=== PATIENT | female | born 1990 | race Caucasian/White ===

== ENCOUNTER 2018-04-21 23:52 | Inpatient (IN) | payer BC ==
[2018-04-22] MEDS ORDERED: Sodium Chloride 0.9% 2.5 ML Syringe FLUSH PRN (01:35)
[2018-04-22] MEDS ORDERED: Sodium Chloride 0.9% 10 ML Syringe FLUSH PRN (01:35)
[2018-04-22] MEDS ORDERED: Oxytocin/0.9 % Sodium Chloride 30 UNIT/500 ML BAG IV SCH (01:45)
[2018-04-22] MEDS ORDERED: Citric Acid/Sodium Citrate Solution 30 ML Cup PO SCH (01:45)
[2018-04-22] MEDS: Lactated Ringers 1,000 ML IV SCH ×2 (01:45→07:26)
--- NOTE | 2018-04-22 01:55 | PCM.SN ---
- Free Text/Narrative Note: Asked to start patient IV. IV started in right hand with 20g angiocath x 1 attempt with good blood flow and flushes easily. Secured with tegaderm.
[2018-04-22] MEDS ORDERED: Propofol 200 MG/20 ML SDV ONE (07:11)
[2018-04-22] MEDS ORDERED: Midazolam 1 MG/ML 2 ML SDV ONE (07:11)
[2018-04-22] MEDS ORDERED: fentaNYL 250 MCG/5 ML SDV ONE (07:11)
[2018-04-22] MEDS ORDERED: Lidocaine 2% 5 ML SDV ONE (07:11)
[2018-04-22] MEDS ORDERED: Ondansetron 4 MG/2 ML SDV ONE (07:12)
[2018-04-22] MEDS ORDERED: fentaNYL 100 MCG/2 ML SDV ONE (07:12)
[2018-04-22] MEDS ORDERED: Oxytocin 10 Units/1 ML SDV ONE (07:12)
[2018-04-22] MEDS ORDERED: Succinylcholine 200 MG/10 ML MDV ONE (07:12)
[2018-04-22] MEDS ORDERED: Octyl 2-Cyanoacrylate 1 Tube ONE (07:19)
--- NOTE | 2018-04-22 07:23 | PCM.PREANE ---
Preanesthetic Assessment - Procedure Proposed Procedure: ; prior 2 yr ago; BTL - Anesthesia/Transfusion/Family Hx Anesthesia History: Prior Anesthesia Without Reaction Family History of Anesthesia Reaction: No Additional History: BMI 74 - Review of Systems General: Other (active labor) Pulmonary: No Symptoms Cardiovascular: No Symptoms Gastrointestinal: Other (GERD) Neurological: Difficulty Walking (due to weight) Other: Reports: None - Physical Assessment NPO Status Date: 04/21/18 NPO Status Time: 22:30 Height: 5 ft 3 in Weight: 420 lb ASA Class: 3E Mental Status: Alert & Oriented x3 Airway Class: Mallampati = 2 Dentition: Reports: Normal Dentition Thyro-Mental Finger Breadths: 3 (short ,full neck) Mouth Opening Finger Breadths: 3 ROM/Head Extension: Limited/Partial Lungs: Clear to Auscultation, Normal Respiratory Effort Cardiovascular: Regular Rate, Regular Rhythm, No Murmurs - Lab Values: Laboratory Last Values WBC 12.14 K/uL (4.0-11.0) H 04/22/18 01:50 RBC 3.42 M/uL (4.30-5.90) L 04/22/18 01:50 Hgb 9.7 g/dL (12.0-16.0) L 04/22/18 01:50 Hct 30.2 % (36.0-46.0) L 04/22/18 01:50 MCV 88.3 fL (80.0-98.0) 04/22/18 01:50 MCH 28.4 pg (27.0-32.0) 04/22/18 01:50 MCHC 32.1 g/dL (31.0-37.0) 04/22/18 01:50 RDW Std Deviation 41.3 fl (28.0-62.0) 04/22/18 01:50 RDW Coeff of Steven 14 % (11.0-15.0) 04/22/18 01:50 Plt Count 242 K/uL (150-400) 04/22/18 01:50 MPV 11.30 fL (7.40-12.00) 04/22/18 01:50 Membrane Rupture POSITIVE 04/22/18 00:13 Blood Type A POSITIVE 04/22/18 01:50 Antibody Screen NEGATIVE 04/22/18 01:50 - Allergies Allergies/Adverse Reactions: Allergies Allergy/AdvReac Type Severity Reaction Status Date / Time latex Allergy Rash Verified 04/19/18 10:36 - Blood Blood Available: No Product(s) Available: PRBC (T and S) - Anesthesia Plan Pre-Op Medication Ordered: Antacids - Acknowledgements Anesthesia Type Planned: Spinal (sitting; if unsuccessful, then general anesthetic (she understands)) Pt an Appropriate Candidate for the Planned Anesthesia: Yes Alternatives and Risks of Anesthesia Discussed w Pt/Guardian: Yes Pt/Guardian Understands and Agrees with Anesthesia Plan: Yes PreAnesthesia Questionnaire - Past Health History Medical/Surgical History: Denies Medical/Surgical History HEENT History: Reports: Other (See Below) Other HEENT History: wears glasses lazy eye 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 Has taken iron with the last 2 pregnancies. Other Dermatologic History: right lower leg has sore that has clear fluid leaking and started x1.5 weeks ago. Sores notes on left lower leg - Infectious Disease History Infectious Disease History: Reports: Chicken Pox - Past Surgical History Head Surgeries/Procedures: Reports: Other (See Below) HEENT Surgical History: Reports: None - HOME MEDS Home Medications: Home Meds PNV95/Ferrous Fumarate/FA [ Tablet] 1 tab PO DAILY 04/19/18 [History] - CURRENT (IN HOUSE) MEDS Current Meds: Current Medications Citric Acid/Sodium Citrate (Bicitra Solution) 30 ml PO .ONCE ANGELLA Oxytocin/Sodium Chloride (Oxytocin 30 Unit/500 Ml-Ns) 30 unit in 500 mls @ 250 mls/hr IV TITRATE ANGELLA Lactated Ringer's (Ringers, Lactated) 1,000 mls @ 500 mls/hr IV .BOLUS ANGELLA Last Admin: 04/22/18 01:45 Dose: 500 mls/hr Sodium Chloride (Saline Flush) 10 ml FLUSH ASDIRECTED PRN PRN Reason: Keep Vein Open Sodium Chloride (Saline Flush) 2.5 ml FLUSH ASDIRECTED PRN PRN Reason: Keep Vein Open Discontinued Medications Fentanyl (Sublimaze) Confirm Administered Dose 250 mcg .ROUTE .STK-MED ONE Stop: 04/22/18 07:12 Fentanyl (Sublimaze) Confirm Administered Dose 100 mcg .ROUTE .STK-MED ONE Stop: 04/22/18 07:13 Lidocaine HCl (Xylocaine-Mpf 1%) Confirm Administered Dose 5 mls @ as directed .ROUTE .ST-MED ONE Stop: 04/22/18 01:52 Lidocaine (Xylocaine-Mpf 2%) Confirm Administered Dose 10 ml .ROUTE .STK-MED ONE Stop: 04/22/18 07:12 Midazolam HCl (Versed 1 Mg/Ml) Confirm Administered Dose 2 mg .ROUTE .STK-MED ONE Stop: 04/22/18 07:12 Ondansetron HCl (Zofran) Confirm Administered Dose 8 mg .ROUTE .STK-MED ONE Stop: 04/22/18 07:13 Oxytocin (Pitocin) Confirm Administered Dose 20 unit .ROUTE .STK-MED ONE Stop: 04/22/18 07:13 Propofol (Diprivan 20 Ml) Confirm Administered Dose 400 mg .ROUTE .STK-MED ONE Stop: 04/22/18 07:12 Succinylcholine Chloride (Quelicin) Confirm Administered Dose 200 mg .ROUTE .STK -MED ONE Stop: 04/22/18 07:13
[2018-04-22] MEDS ORDERED: ePHEDrine 50 MG/ML SDV ONE (07:28)
[2018-04-22] MEDS ORDERED: Morphine PF 1 MG/ML Amp ONE (07:31)
[2018-04-22] MEDS ORDERED: Naloxone 0.4 MG/ML Syringe IVPUSH PRN (08:34)
[2018-04-22] MEDS ORDERED: Nalbuphine 10 MG/ML 10 ML MDV IVPUSH PRN (08:34)
[2018-04-22] MEDS ORDERED: Ondansetron 4 MG/2 ML SDV IV PRN (08:54)
[2018-04-22] MEDS ORDERED: Bisacodyl 10 MG Supp RECTAL PRN (08:54)
[2018-04-22] MEDS ORDERED: diphenhydrAMINE 50 MG/ML SDV IVPUSH PRN (08:54)
[2018-04-22] MEDS ORDERED: Acetaminophen/oxyCODONE 325-5 MG Tab PO PRN (08:54)
[2018-04-22] MEDS ORDERED: Lanolin 100% Cream 7 GM Tube TOP PRN (08:54)
--- NOTE | 2018-04-22 08:57 | PCM.LDHP ---
L&D History of Present Illness - General Date of Service: 04/22/18 Admit Problem/Dx: Patient Status Order with Admit Dx/Problem 04/22/18 01:35 Patient Status [ADT] Routine 04/22/18 08:54 Patient Status [ADT] Routine Admission Diagnosis/Problem Admission Diagnosis/Problem -related examination Source of Information: Patient History Limitations: Reports: No Limitations - History of Present Illness Improves with: Reports: None Worsens with: Reports: None Associated Symptoms: Reports: N - Related Data Allergies/Adverse Reactions: Allergies Allergy/AdvReac Type Severity Reaction Status Date / Time latex Allergy Rash Verified 04/19/18 10:36 Home Medications: Home Meds PNV95/Ferrous Fumarate/FA [ Tablet] 1 tab PO DAILY 04/19/18 [History] Past Medical History - Past Health History Medical/Surgical History: Denies Medical/Surgical History HEENT History: Reports: Other (See Below) Other HEENT History: wears glasses lazy eye 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 Has taken iron with the last 2 pregnancies. Other Dermatologic History: right lower leg has sore that has clear fluid leaking and started x1.5 weeks ago. Sores notes on left lower leg - Infectious Disease History Infectious Disease History: Reports: Chicken Pox - Past Surgical History Head Surgeries/Procedures: Reports: Other (See Below) HEENT Surgical History: Reports: None Social & Family History - Family History OBGYN: Reports: Other (See Below) Other OBGYN Family History: Mother and PGM Cancer H&P Review of Systems - Review of Systems: Review Of Systems: See Below General: Reports: No Symptoms HEENT: Reports: No Symptoms Pulmonary: Reports: No Symptoms Cardiovascular: Reports: No Symptoms Gastrointestinal: Reports: No Symptoms Genitourinary: Reports: No Symptoms Musculoskeletal: Reports: No Symptoms Skin: Reports: No Symptoms Psychiatric: Reports: No Symptoms Neurological: Reports: No Symptoms Hematologic/Lymphatic: Reports: No Symptoms Immunologic: Reports: No Symptoms L&D Exam - Exam Exam: See Below - Vital Signs Weight: 190.509 kg - Exam General: Alert, Oriented HEENT: PERRLA, Conjunctiva Clear, EACs Clear, EOMI, Hearing Intact, Mucosa Moist & Snyder, Nares Patent, Normal Nasal Septum, Posterior Pharynx Clear, TMs Clear Neck: Supple, Trachea Midline Lungs: Clear to Auscultation, Normal Respiratory Effort Cardiovascular: Regular Rate, Regular Rhythm GI/Abdominal Exam: Normal Bowel Sounds, Soft, Non-Tender, No Organomegaly, No Distention, No Abnormal Bruit, No Mass, Pelvis Stable Rectal Exam: Normal Exam, Normal Rectal Tone Genitourinary: Normal external exam, Normal bimanual exam, Normal speculum exam Back Exam: Normal Inspection, Full Range of Motion Extremities: Normal Inspection, Normal Range of Motion, Non-Tender, No Pedal Edema, Normal Capillary Refill Skin: Warm, Dry, Intact Neurological: Cranial Nerves Intact, Reflexes Equal Bilateral Psychiatric: Alert, Normal Affect, Normal Mood - Patient Data Lab Results Last 24 hrs: Laboratory Results - last 24 hr 04/22/18 04/22/18 04/22/18 Range/Units 00:13 01:50 01:50 WBC 12.14 H (4.0-11.0) K/uL RBC 3.42 L (4.30-5.90) M/uL Hgb 9.7 L (12.0-16.0) g/dL Hct 30.2 L (36.0-46.0) % MCV 88.3 (80.0-98.0) fL MCH 28.4 (27.0-32.0) pg MCHC 32.1 (31.0-37.0) g/dL RDW Std Deviation 41.3 (28.0-62.0) fl RDW Coeff of Steven 14 (11.0-15.0) % Plt Count 242 (150-400) K/uL MPV 11.30 (7.40-12.00) fL Membrane Rupture POSITIVE Blood Type A POSITIVE Antibody Screen NEGATIVE Result Diagrams: 04/22/18 01:50 Problem List Initiated/Reviewed/Updated: Yes Orders Last 24hrs: Active Orders 24 hr Category Date Time Status Patient Status [ADT] Routine ADT 04/22/18 08:54 Ordered Ambulate [RC] PER UNIT ROUTINE Care 04/22/18 08:54 Ordered Bradycardia-Neuroaxis [employer] [RC] ROUTINE Care 04/22/18 08:34 Active Communication Order [RC] PER UNIT ROUTINE Care 04/22/18 08:54 Ordered Communication Order [RC] PER UNIT ROUTINE Care 04/22/18 08:54 Ordered Communication Order [RC] Per Unit Routine Care 04/22/18 08:54 Ordered Non Stress Test [RC] PER UNIT ROUTINE Care 04/22/18 00:10 Active Non Stress Test [RC] PER UNIT ROUTINE Care 04/22/18 01:35 Active Hypertension-Neuroaxis [employer] [RC] ROUTINE Care 04/22/18 08:34 Active Hypotension-Neuroaxis [employer] [RC] ROUTINE Care 04/22/18 08:34 Active May Shower [RC] ASDIRECTED Care 04/22/18 08:54 Ordered Notify Provider Vital Signs [RC] PRN Care 04/22/18 01:37 Active Oxygen Therapy [RC] PER UNIT ROUTINE Care 04/22/18 08:34 Active Procedure Site Prep Instruct [RC] ASDIRECTED Care 04/22/18 01:35 Active RT Incentive Spirometry [RC] Q2HWA Care 04/22/18 08:54 Ordered Up ad Debbie [RC] ASDIRECTED Care 04/22/18 00:10 Active Up ad Debbie [RC] ASDIRECTED Care 04/22/18 01:35 Active Vaginal Exam [RC] Click to Edit Care 04/22/18 00:10 Active Verify Patient Consent Obtain [RC] ASDIRECTED Care 04/22/18 01:35 Active Vital Signs [RC] PER UNIT ROUTINE Care 04/22/18 00:10 Active Vital Signs [RC] PER UNIT ROUTINE Care 04/22/18 01:35 Active Vital Signs [RC] PER UNIT ROUTINE Care 04/22/18 08:54 Ordered Vital Signs [RC] Q1H Care 04/22/18 08:34 Active HEMOGLOBIN/HEMATOCRIT,HH [HEME] Timed Lab 04/23/18 05:11 Ordered Acetaminophen/oxyCODONE [Percocet 325-5 MG] Med 04/22/18 08:54 Ordered 1 tab PO Q4H PRN Acetaminophen/oxyCODONE [Percocet 325-5 MG] Med 04/22/18 08:54 Ordered 2 tab PO Q4H PRN Bisacodyl [Dulcolax] Med 04/22/18 08:54 Ordered 10 mg RECTAL .ONCE PRN Citric Acid/Sodium Citrate [Bicitra Solution] Med 04/22/18 01:45 Active 30 ml PO .ONCE Docusate Sodium [Colace] Med 04/22/18 09:00 Ordered 100 mg PO BID Ibuprofen [Motrin] Med 04/22/18 08:54 Ordered 800 mg PO Q8H PRN Ketorolac [Toradol] Med 04/22/18 09:00 Ordered 30 mg IVPUSH Q6H Lactated Ringers @ 125 MLS/HR(1000ml) Med 04/22/18 09:00 Ordered Lactated Ringers [Ringers, Lactated] 1,000 ml IV ASDIRECTED Lactated Ringers [Ringers, Lactated] 1,000 ml Med 04/22/18 01:45 Active IV .BOLUS Lanolin [Lansinoh HPA] Med 04/22/18 08:54 Ordered See Dose Instructions TOP ASDIRECTED PRN Nalbuphine [Nubain] Med 04/22/18 08:34 Active 10 mg IVPUSH Q3H PRN Naloxone [Narcan] Med 04/22/18 08:34 Active 0.1 mg IVPUSH ONETIME PRN Ondansetron [Zofran] Med 04/22/18 08:54 Ordered 4 mg IV Q4H PRN Oxytocin/0.9 % Sodium Chloride [Oxytocin 30 Unit/500 ML Med 04/22/18 01:45 Active -NS] 30 unit in 500 ml IV TITRATE Sodium Chloride 0.9% [Saline Flush] Med 04/22/18 01:35 Active 10 ml FLUSH ASDIRECTED PRN Sodium Chloride 0.9% [Saline Flush] Med 04/22/18 01:35 Active 2.5 ml FLUSH ASDIRECTED PRN diphenhydrAMINE [Benadryl] Med 04/22/18 08:54 Ordered 25 mg IVPUSH Q6H PRN AN Neuroaxis [employer] Precaution Reflex [OM.PC] PER Ot 04/22/18 08:45 Ordered UNIT ROUTINE AN Neuroaxis [employer] Precaution Reflex [OM.PC] PER Ot 04/23/18 08:45 Ordered UNIT ROUTINE Assess Lochia [WOMSER] Per Unit Routine Ot 04/22/18 08:54 Ordered Assess Uterine Involution [WOMSER] Per Unit Routine Ot 04/22/18 08:54 Ordered Breast Pump [WOMSER] Per Unit Routine Ot 04/22/18 08:54 Ordered Peripheral IV Discontinue [OM.PC] Routine Ot 04/22/18 08:54 Ordered Peripheral IV Insertion Adult [OM.PC] Routine Ot 04/22/18 01:35 Ordered Schedule Procedure [COMM] Per Unit Routine Ot 04/22/18 01:35 Ordered Sequential Compression Device [OM.PC] Per Unit Routine Ot 04/22/18 08:54 Ordered Resuscitation Status Routine Resus Stat 04/22/18 00:10 Ordered Medication Orders Citric Acid/Sodium Citrate (Bicitra Solution) 30 ml PO .ONCE ANGELLA Last Admin: 04/22/18 07:38 Dose: 30 ml Oxytocin/Sodium Chloride (Oxytocin 30 Unit/500 Ml-Ns) 30 unit in 500 mls @ 250 mls/hr IV TITRATE ANGELLA Lactated Ringer's (Ringers, Lactated) 1,000 mls @ 500 mls/hr IV .BOLUS ANGELLA Last Admin: 04/22/18 07:26 Dose: 500 mls/hr Infusion: 04/22/18 03:45 Dose: 500 mls/hr Admin: 04/22/18 01:45 Dose: 500 mls/hr Nalbuphine HCl (Nubain) 10 mg IVPUSH Q3H PRN PRN Reason: Pruritis Stop: 04/23/18 08:35 Naloxone HCl (Narcan) 0.1 mg IVPUSH ONETIME PRN PRN Reason: Respiratory Depression Stop: 04/23/18 08:34 Sodium Chloride (Saline Flush) 10 ml FLUSH ASDIRECTED PRN PRN Reason: Keep Vein Open Sodium Chloride (Saline Flush) 2.5 ml FLUSH ASDIRECTED PRN PRN Reason: Keep Vein Open Assessment/Plan Comment:: Admitted for repeat C/section and tubal ligation.
--- NOTE | 2018-04-22 08:58 | PCM.OPNOTE ---
- General Post-Op/Procedure Note Date of Surgery/Procedure: 04/22/18 Operative Procedure(s): Repeat C/section. Tubal ligation. Post-Op Diagnosis: Same Anesthesia Technique: Spinal Primary Surgeon: Seun Scales EBL in mLs: 800 Complications: None Condition: Good
[2018-04-22] MEDS ORDERED: Lactated Ringers 1,000 ML IV SCH (09:00)
--- NOTE | 2018-04-22 09:34 | PCM.POSTAN ---
POST ANESTHESIA ASSESSMENT - MENTAL STATUS Mental Status: Alert, Oriented - RESPIRATORY Respiratory Status: Respiratory Rate WNL, Airway Patent, O2 Saturation Stable - CARDIOVASCULAR CV Status: Pulse Rate WNL, Blood Pressure Stable - GASTROINTESTINAL GI Status: No Symptoms - PAIN Pain Score: 0 - POST OP HYDRATION Hydration Status: Adequate & Stable
[2018-04-22] MEDS: Ketorolac 30 MG/ML SDV IVPUSH SCH ×3 (11:18→23:10)
--- NOTE | 2018-04-22 12:08 | OR ---
SURGEON: Seun Scales MD DATE OF PROCEDURE: PREOPERATIVE DIAGNOSES: 1. Intrauterine , term. 2. Multiple previous sections, admitted for elective repeat section. 3. tubal ligation. POSTOPERATIVE DIAGNOSES: 1. Intrauterine , term. 2. Multiple previous sections, admitted for elective repeat section. 3. tubal ligation. OPERATION PERFORMED: Repeat low-transverse section with Lynnette tubal ligation achieving by doing distal salpingectomy. PSYCH ASSISTANT: OR tech. ANESTHESIA: Spinal, Ananth Vázquez and Declan Torre M.D. ESTIMATED BLOOD LOSS: 800 mL. COMPLICATIONS: None. INDICATION FOR THE SURGERY: This patient is 28, she had 3 previous sections. She has a higher risk. She has a high BMI and she is admitted for elective repeat section. She was approved by the ethic committee for tubal ligation. PROCEDURE IN DETAIL: The patient was brought to the OR, properly identified. After adequate level of spinal anesthesia, the patient was prepped and draped in sterile fashion as usual. Low-transverse Pfannenstiel skin incision was done. Kirstie's fascia and rectus fascia opened in direction of the incision. The 2 recti muscles were and peritoneal cavity was entered. The fetus was in the vertex position. Low-transverse uterine incision was done and extended manually with the hand. Fetus was delivered without any problem, cried immediately. score reported to be 8 and 9. The weight is not available. The placenta delivered spontaneous, complete, and intact. Repair of the lower uterine segment was done in 2 layers using 2-0 Vicryl interlocking suture. The peritoneal cavity evacuated completely from all blood and blood clot. Attention was paid to the tube at this time and distal partial salpingectomy on both sides was done to achieve bilateral tubal ligation. Once that was done, inspection of the operative field shows no oozing, no bleeding. The peritoneum closed with 3- 0 Vicryl continuous and the rectus fascia was closed with #1 PDS double strand. After that, the Rashad-Bush was placed in the subcutaneous fascia for drainage because of the size of the patient and then 3-0 Vicryl used to close the Kirstie's fascia and skin closed with skin clips. Instrument and sponge count was correct. The patient tolerated the procedure well, went to recovery room in stable general condition. FLOR / EDER /[id number]
[2018-04-22] MEDS: Docusate Sodium 100 MG Cap PO SCH ×2 (17:30→20:06)
[2018-04-22] MEDS: Enoxaparin 40 MG/0.4 ML Syringe SUBCUT SCH (20:06)
[2018-04-23] MEDS: Ketorolac 30 MG/ML SDV IVPUSH SCH ×2 (04:58→11:19)
--- NOTE | 2018-04-23 06:47 | PCM48HPAN ---
Post Anesthesia Note - EVALUATION WITHIN 48HRS OF ANESTHETIC Vital Signs in Normal Range: Yes Patient Participated in Evaluation: Yes Respiratory Function Stable: Yes Airway Patent: Yes Cardiovascular Function Stable: Yes Hydration Status Stable: Yes Pain Control Satisfactory: Yes Nausea and Vomiting Control Satisfactory: Yes Mental Status Recovered: Yes Resp Rate: 18 - COMMENTS/OBSERVATIONS Free Text/Narrative:: [employer] vitals from day shift are documented in the paper chart
[2018-04-23] MEDS: Docusate Sodium 100 MG Cap PO SCH ×2 (10:51→20:11)
[2018-04-23] MEDS: Acetaminophen/oxyCODONE 325-5 MG Tab PO PRN (11:18)
--- NOTE | 2018-04-23 12:59 | PCM.PNPP ---
- General Info Date of Service: 04/23/18 Functional Status: Reports: Pain Controlled, Tolerating Diet, Ambulating, Urinating - Review of Systems General: Denies: Fever, Fatigue HEENT: Denies: Headaches Pulmonary: Denies: Shortness of Breath, Pleuritic Chest Pain, Cough Cardiovascular: Denies: Chest Pain, Palpitations, Dyspnea on Exertion Gastrointestinal: Denies: Abdominal Pain Genitourinary: Denies: Dysuria, Incontinence, Flank Pain Psychiatric: Reports: Depression, Mood Lability, Anxiety - General Info Date of Service: 04/23/18 - Patient Data Vital Signs - Most Recent: Last Vital Signs Temp 36.9 C 04/23/18 11:51 Pulse 97 04/23/18 11:51 Resp 16 04/23/18 11:51 BP 143/75 H 04/23/18 11:51 Pulse Ox 96 04/23/18 11:51 Weight - Most Recent: 420 lb I&O - Last 24 Hours: Intake & Output 04/22/18 04/23/18 04/23/18 22:59 06:59 14:59 Intake Total 500 2000 Output Total 280 490 Balance 220 1510 Lab Results - Last 24 Hours: Laboratory Results - last 24 hr 04/23/18 Range/Units 05:40 Hgb 8.3 L (12.0-16.0) g/dL Hct 25.5 L (36.0-46.0) % Med Orders - Current: Current Medications Bisacodyl (Dulcolax) 10 mg RECTAL .ONCE PRN PRN Reason: Constipation Citric Acid/Sodium Citrate (Bicitra Solution) 30 ml PO .ONCE [facility] Last Admin: 04/22/18 07:38 Dose: 30 ml Diphenhydramine HCl (Benadryl) 25 mg IVPUSH Q6H PRN PRN Reason: Itching or Nausea Docusate Sodium (Colace) 100 mg PO BID [facility] Last Admin: 04/23/18 10:51 Dose: 100 mg Emollient Ointment (Lansinoh Hpa) 0 gm TOP ASDIRECTED PRN PRN Reason: Sore Nipples Enoxaparin Sodium (Lovenox) 40 mg SUBCUT Q24H [facility] Last Admin: 04/22/18 20:06 Dose: 40 mg Oxytocin/Sodium Chloride (Oxytocin 30 Unit/500 Ml-Ns) 30 unit in 500 mls @ 250 mls/hr IV TITRATE ANGELLA Lactated Ringer's (Ringers, Lactated) 1,000 mls @ 500 mls/hr IV .BOLUS [facility] Last Admin: 04/22/18 07:26 Dose: 500 mls/hr Lactated Ringer's (Ringers, Lactated) 1,000 mls @ 125 mls/hr IV ASDIRECTED ANGELLA Ibuprofen (Motrin) 800 mg PO Q8H PRN PRN Reason: mild pain or fever Ondansetron HCl (Zofran) 4 mg IV Q4H PRN PRN Reason: Nausea/Vomiting Oxycodone/Acetaminophen (Percocet 325-5 Mg) 1 tab PO Q4H PRN PRN Reason: Pain (moderate 4-6) Last Admin: 04/23/18 11:18 Dose: 1 tab Oxycodone/Acetaminophen (Percocet 325-5 Mg) 2 tab PO Q4H PRN PRN Reason: Pain (moderate 4-6) Sodium Chloride (Saline Flush) 10 ml FLUSH ASDIRECTED PRN PRN Reason: Keep Vein Open Sodium Chloride (Saline Flush) 2.5 ml FLUSH ASDIRECTED PRN PRN Reason: Keep Vein Open Discontinued Medications Ephedrine Sulfate (Ephedrine Sulfate) Confirm Administered Dose 100 mg .ROUTE .STK-MED ONE Stop: 04/22/18 07:29 Fentanyl (Sublimaze) Confirm Administered Dose 250 mcg .ROUTE .STK-MED ONE Stop: 04/22/18 07:12 Fentanyl (Sublimaze) Confirm Administered Dose 100 mcg .ROUTE .STK-MED ONE Stop: 04/22/18 07:13 Lidocaine HCl (Xylocaine-Mpf 1%) Confirm Administered Dose 5 mls @ as directed .ROUTE .STK-MED ONE Stop: 04/22/18 01:52 Ketorolac Tromethamine (Toradol) 30 mg IVPUSH Q6H [facility] Stop: 04/23/18 09:01 Last Admin: 04/23/18 11:19 Dose: Not Given Lidocaine (Xylocaine-Mpf 2%) Confirm Administered Dose 10 ml .ROUTE .STK-MED ONE Stop: 04/22/18 07:12 Midazolam HCl (Versed 1 Mg/Ml) Confirm Administered Dose 2 mg .ROUTE .STK-MED ONE Stop: 04/22/18 07:12 Morphine Sulfate (Duramorph Pf) Confirm Administered Dose 1 mg .ROUTE .STK-MED ONE Stop: 04/22/18 07:32 Nalbuphine HCl (Nubain) 10 mg IVPUSH Q3H PRN PRN Reason: Pruritis Stop: 04/23/18 08:35 Naloxone HCl (Narcan) 0.1 mg IVPUSH ONETIME PRN PRN Reason: Respiratory Depression Stop: 04/23/18 08:34 Octyl Cyanoacrylate (Dermabond Advance) Confirm Administered Dose 1 applic .ROUTE .STK-MED ONE Stop: 04/22/18 07:20 Ondansetron HCl (Zofran) Confirm Administered Dose 8 mg .ROUTE .STK-MED ONE Stop: 04/22/18 07:13 Oxytocin (Pitocin) Confirm Administered Dose 20 unit .ROUTE .STK-MED ONE Stop: 04/22/18 07:13 Propofol (Diprivan 20 Ml) Confirm Administered Dose 400 mg .ROUTE .STK-MED ONE Stop: 04/22/18 07:12 Succinylcholine Chloride (Quelicin) Confirm Administered Dose 200 mg .ROUTE .STK -MED ONE Stop: 04/22/18 07:13 - Infant Interaction Infant Disposition, : [place] in Room with Family Feeding: Breastfed ; Nursed Well, Continues to Breastfeed Support Person: - Recovery Exam Fundal Tone: Firm Fundal Level: At Umbilicus Fundal Placement: Midline Lochia Amount: Scant Lochia Color: Rubra/Red Perineum Description: Intact, Minimal Bruising/Swelling Episiotomy/Laceration: None Bladder Status: Voiding Urinary Elimination: Voided - Exam General: Alert, Oriented HEENT: Pupils Equal Lungs: Clear to Auscultation, Normal Respiratory Effort Cardiovascular: Regular Rate, Regular Rhythm GI/Abdominal Exam: Normal Bowel Sounds Extremities: Non-Tender, Pedal Edema Skin: Warm Wound/Incisions: Healing Well Psy/Mental Status: Alert, Normal Affect, Normal Mood - Problem List & Annotations (1) Delivered by delivery following previous delivery SNOMED Code(s): 447405609 Code(s): VVD1283 - Status: Acute Current Visit: Yes (2) Morbid obesity with BMI of 70 and over, adult SNOMED Code(s): 624415955 Code(s): E66.01 - MORBID (SEVERE) OBESITY DUE TO EXCESS CALORIES; Z68.45 - BODY MASS INDEX (BMI) 70 OR GREATER, ADULT Status: Acute Current Visit: Yes - Problem List Review Problem List Initiated/Reviewed/Updated: Yes - My Orders Last 24 Hours: My Active Orders 04/22/18 20:00 Enoxaparin [Lovenox] 40 mg SUBCUT Q24H - Assessment Assessment:: POD#1 s/p RLTCS with bilateral tubal ligation, Stable and afebrile Anemia- asymptomatic - Plan Plan:: MITCH drained removed( less than 50mls within the last 24 hours) Continue prophylactic lovenox Continue to ambulate ad sherry Start Iron supplements Aim for discharge tomorrow
[2018-04-23] MEDS: Ibuprofen 800 MG Tab PO PRN (17:12)
[2018-04-23] MEDS: Enoxaparin 40 MG/0.4 ML Syringe SUBCUT SCH (19:36)
[2018-04-24] MEDS: Ibuprofen 800 MG Tab PO PRN (04:00)
[2018-04-24] MEDS: Docusate Sodium 100 MG Cap PO SCH (08:49)
[2018-04-24] MEDS: Acetaminophen/oxyCODONE 325-5 MG Tab PO PRN (08:51)
--- NOTE | 2018-04-24 12:12 | PCM.PNPP ---
- General Info Date of Service: 04/24/18 Functional Status: Reports: Pain Controlled, Tolerating Diet, Ambulating, Urinating - Review of Systems General: Denies: Fever, Weakness, Chills HEENT: Denies: Headaches Pulmonary: Denies: Shortness of Breath, Pleuritic Chest Pain Cardiovascular: Denies: Chest Pain, Palpitations Gastrointestinal: Denies: Abdominal Pain Genitourinary: Denies: Burning, Incontinence, Flank Pain Psychiatric: Denies: Confusion, Depression, Mood Lability, Anxiety - General Info Date of Service: 04/24/18 - Patient Data Vital Signs - Most Recent: Last Vital Signs Temp 36.4 C 04/24/18 07:46 Pulse 94 04/24/18 07:46 Resp 20 04/24/18 07:46 BP 138/89 04/24/18 07:46 Pulse Ox 97 04/24/18 08:10 Weight - Most Recent: 420 lb I&O - Last 24 Hours: Intake & Output 04/23/18 04/24/18 04/24/18 22:59 06:59 14:59 Output Total 900 Balance -900 Med Orders - Current: Current Medications Bisacodyl (Dulcolax) 10 mg RECTAL .ONCE PRN PRN Reason: Constipation Citric Acid/Sodium Citrate (Bicitra Solution) 30 ml PO .ONCE [facility] Last Admin: 04/22/18 07:38 Dose: 30 ml Diphenhydramine HCl (Benadryl) 25 mg IVPUSH Q6H PRN PRN Reason: Itching or Nausea Docusate Sodium (Colace) 100 mg PO BID [facility] Last Admin: 04/24/18 08:49 Dose: 100 mg Emollient Ointment (Lansinoh Hpa) 0 gm TOP ASDIRECTED PRN PRN Reason: Sore Nipples Enoxaparin Sodium (Lovenox) 40 mg SUBCUT Q24H [facility] Last Admin: 04/23/18 19:36 Dose: 40 mg Oxytocin/Sodium Chloride (Oxytocin 30 Unit/500 Ml-Ns) 30 unit in 500 mls @ 250 mls/hr IV TITRATE [facility] Lactated Ringer's (Ringers, Lactated) 1,000 mls @ 500 mls/hr IV .BOLUS [facility] Last Admin: 04/22/18 07:26 Dose: 500 mls/hr Lactated Ringer's (Ringers, Lactated) 1,000 mls @ 125 mls/hr IV ASDIRECTED ANGELLA Ibuprofen (Motrin) 800 mg PO Q8H PRN PRN Reason: mild pain or fever Last Admin: 04/24/18 04:00 Dose: 800 mg Ondansetron HCl (Zofran) 4 mg IV Q4H PRN PRN Reason: Nausea/Vomiting Oxycodone/Acetaminophen (Percocet 325-5 Mg) 1 tab PO Q4H PRN PRN Reason: Pain (moderate 4-6) Last Admin: 04/24/18 08:51 Dose: 1 tab Oxycodone/Acetaminophen (Percocet 325-5 Mg) 2 tab PO Q4H PRN PRN Reason: Pain (moderate 4-6) Last Admin: 04/23/18 22:27 Dose: 2 tab Sodium Chloride (Saline Flush) 10 ml FLUSH ASDIRECTED PRN PRN Reason: Keep Vein Open Sodium Chloride (Saline Flush) 2.5 ml FLUSH ASDIRECTED PRN PRN Reason: Keep Vein Open Discontinued Medications Ephedrine Sulfate (Ephedrine Sulfate) Confirm Administered Dose 100 mg .ROUTE .STK-MED ONE Stop: 04/22/18 07:29 Fentanyl (Sublimaze) Confirm Administered Dose 250 mcg .ROUTE .STK-MED ONE Stop: 04/22/18 07:12 Fentanyl (Sublimaze) Confirm Administered Dose 100 mcg .ROUTE .STK-MED ONE Stop: 04/22/18 07:13 Lidocaine HCl (Xylocaine-Mpf 1%) Confirm Administered Dose 5 mls @ as directed .ROUTE .STK-MED ONE Stop: 04/22/18 01:52 Ketorolac Tromethamine (Toradol) 30 mg IVPUSH Q6H [facility] Stop: 04/23/18 09:01 Last Admin: 04/23/18 11:19 Dose: Not Given Lidocaine (Xylocaine-Mpf 2%) Confirm Administered Dose 10 ml .ROUTE .STK-MED ONE Stop: 04/22/18 07:12 Midazolam HCl (Versed 1 Mg/Ml) Confirm Administered Dose 2 mg .ROUTE .STK-MED ONE Stop: 04/22/18 07:12 Morphine Sulfate (Duramorph Pf) Confirm Administered Dose 1 mg .ROUTE .STK-MED ONE Stop: 04/22/18 07:32 Nalbuphine HCl (Nubain) 10 mg IVPUSH Q3H PRN PRN Reason: Pruritis Stop: 04/23/18 08:35 Naloxone HCl (Narcan) 0.1 mg IVPUSH ONETIME PRN PRN Reason: Respiratory Depression Stop: 04/23/18 08:34 Octyl Cyanoacrylate (Dermabond Advance) Confirm Administered Dose 1 applic .ROUTE .STK-MED ONE Stop: 04/22/18 07:20 Ondansetron HCl (Zofran) Confirm Administered Dose 8 mg .ROUTE .STK-MED ONE Stop: 04/22/18 07:13 Oxytocin (Pitocin) Confirm Administered Dose 20 unit .ROUTE .STK-MED ONE Stop: 04/22/18 07:13 Propofol (Diprivan 20 Ml) Confirm Administered Dose 400 mg .ROUTE .STK-MED ONE Stop: 04/22/18 07:12 Succinylcholine Chloride (Quelicin) Confirm Administered Dose 200 mg .ROUTE .STK -MED ONE Stop: 04/22/18 07:13 - Infant Interaction Infant Disposition, : in Room with Family Infant Feeding: Breastfed Infant; Nursed Well, Continues to Breastfeed Support Person: - Recovery Exam Fundal Tone: Firm Fundal Level: 1 Fingerbreadths Below Umbilicus Fundal Placement: Midline Lochia Amount: Scant Lochia Color: Rubra/Red Perineum Description: Intact, Minimal Bruising/Swelling Episiotomy/Laceration: Approximated Bladder Status: Voiding Urinary Elimination: Voided - Exam General: Alert, Oriented Lungs: Clear to Auscultation, Normal Respiratory Effort Cardiovascular: Regular Rate, Regular Rhythm GI/Abdominal Exam: Non-Tender Extremities: Non-Tender, Pedal Edema Skin: Warm Wound/Incisions: Healing Well, No Drainage (MITCH site dry) Psy/Mental Status: Alert, Normal Affect, Normal Mood - Problem List & Annotations (1) Delivered by delivery following previous delivery SNOMED Code(s): 271953039 Code(s): FCX7146 - Status: Acute Current Visit: Yes (2) Morbid obesity with BMI of 70 and over, adult SNOMED Code(s): 846860349 Code(s): E66.01 - MORBID (SEVERE) OBESITY DUE TO EXCESS CALORIES; Z68.45 - BODY MASS INDEX (BMI) 70 OR GREATER, ADULT Status: Acute Current Visit: Yes - Problem List Review Problem List Initiated/Reviewed/Updated: Yes - Assessment Assessment:: POD#2 s/p RLTCS with bilateral tubal ligation, Stable and afebrile Clinically stable for discharge - Plan Plan:: Discharge instructions Nothing in the vagina for 6 weeks Care of her incision- keeeping it clean and dry was reviewed. S/S of VTE were reviewed extensively with patient blues vs depression S/S were reviewed Prescription for pain meds written- Percocet and Ibuprofen Follow up in 2 weeks at [facility]
== END 2018-04-24 13:10 | disposition home or self-care (01) | DRG 540 ==
LOC: MW.CHOBGYN 23:52 → MW.OB 23:55 → MW.CHOBGYN 04-22 01:35 → MW.OB 04-22 01:35 → OBSVTOIN 04-22 08:24 → MW.OB 04-22 16:02
PROVIDERS: ADMIT Obstetrics & Gynecology; ATTEND Obstetrics & Gynecology
PROC: 10D00Z1 Extraction of Products of Conception, Low, Open Approach (ICD-10-PCS; principal; 2018-04-22)
PROC: 0UT70ZZ Resection of Bilateral Fallopian Tubes, Open Approach (ICD-10-PCS; 2018-04-22)
DX: O34.211 Maternal care for low transverse scar from previous cesarean delivery (principal); O99.214 Obesity complicating childbirth; Z68.45 Body mass index [BMI] 70 or greater, adult; Z3A.38 38 weeks gestation of pregnancy; Z37.0 Single live birth; Z30.2 Encounter for sterilization; Z91.040 Latex allergy status
CPT/HCPCS: 36415; 59025; 84112; 85014; 85018; 85027; 86850; 86900; 86901; A9270-GY; J0330; J1650; J1885; J2250; J2274; J2405; J2590; J2704; J3010; J7120

== ENCOUNTER 2022-10-12 20:49 | Emergency (ER) | payer SELFPAY ==
[2022-10-12] MEDS ORDERED: Ketorolac 60 MG/2 ML SDV IM ONE (21:09)
== END 2022-10-12 22:30 | disposition home or self-care (01) ==
LOC: MERGE 20:49 → MW.ED 20:49
DX: M25.561 Pain in right knee (principal); Z91.040 Latex allergy status
CPT/HCPCS: 73562; 96372; 99283; J1885

== ENCOUNTER 2024-10-16 10:44 | Emergency (ER) | payer MEDICAID, OTHER | END 2024-10-16 13:10 | disposition home or self-care (01) | LOC: MW.ED 10:44 | DX: S89.92XA Unspecified injury of left lower leg, initial encounter (principal); Z90.710 Acquired absence of both cervix and uterus; Z91.040 Latex allergy status; Z79.899 Other long term (current) drug therapy; Z75.8 Other problems related to medical facilities and other health care; W01.0XXA Fall on same level from slipping, tripping and stumbling without subsequent striking against object, initial encounter | CPT/HCPCS: 73562-26-LT; 73562-LT; 99283 ==

== ENCOUNTER 2024-11-28 10:10 | Emergency (ER) | payer BC, OTHER ==
[2024-11-28] MEDS: Ketorolac 30 MG/ML SDV IM ONE (11:02)
== END 2024-11-28 12:09 | disposition home or self-care (01) ==
LOC: MW.ED 10:10
DX: S89.92XA Unspecified injury of left lower leg, initial encounter (principal); Z91.040 Latex allergy status; X50.0XXA Overexertion from strenuous movement or load, initial encounter; Y93.01 Activity, walking, marching and hiking
CPT/HCPCS: 73562; 96372; 99283; J1885